=== PATIENT | female | born 1940 | race Caucasian/White ===

== ENCOUNTER 2018-03-28 09:51 | Emergency (ER) | payer SELFPAY ==
[~2018-03-28] VITALS: Ht 152.4 cm; Wt 68.9 kg
[2018-03-28 10:05] VITALS: Ht 152.4 cm; Wt 68.9 kg
[2018-03-28 11:01] LABS: BASOPHIL % 0.6 % (0-2); RED CELL DISTRIBUTION WIDTH 14.1 % (11.5-14.5)
[2018-03-28 11:02] LABS: PLATELET COUNT 115 x10^3mcL (130-400)
[2018-03-28 11:24] LABS: UA SPECIFIC GRAVITY 1.025 (1.005-1.035); microscopic required? YES; urine erythrocyte 1+ (NEGATIVE)
[2018-03-28 11:30] LABS: CALCIUM 8.3 mg/dL (8.5-10.1); CARBON DIOXIDE 28.2 mmol/L (21-32); CHLORIDE SERUM 104 mmol/L (98-107); CREATININE SERUM 0.6 mg/dL (0.6-1.0); GLUCOSE SERUM 92 mg/dL (74-106); POTASSIUM SERUM 3.8 mmol/L (3.5-5.1); SODIUM SERUM 140 mmol/L (136-145)
[2018-03-28 11:34] LABS: ALKALINE PHOSPHATASE 86 U/L (46-116); ALT/SGPT 27 U/L (14-59); AMYLASE 38 U/L (25-115); AST/SGOT 29 U/L (15-37); BILIRUBIN TOTAL 0.6 mg/dL (0.20-1.00); LIPASE 154 IU/L (73-393); TOTAL PROTEIN, SERUM 7.3 g/dL (6.4-8.2)
[2018-03-28 11:35] LABS: ALBUMIN 3.2 g/dL (3.4-5.0)
[2018-03-28 17:59] VITALS: BP 146/69
== END 2018-03-28 17:59 | disposition home or self-care (01) ==
LOC: ED 09:51
PROVIDERS: Emergency Medicine
DX: K86.9 Disease of pancreas, unspecified (principal)
CPT/HCPCS: 83880; J1885; J2405; J7030; Q9966; Q9967